=== PATIENT | female | born 1995 | race Caucasian/White ===

== ENCOUNTER 2021-09-27 14:41 | Day surgery (SDC) | payer BC ==
[2021-09-27 15:24] VITALS: BMI 31.5
[2021-09-27] MEDS ORDERED: hydrALAZINE 20 MG/ML VIAL SLOW IVP PRN (15:51)
[2021-09-27 16:20] LABS: Fetal Membranes Rupture No Membranes Rupture (No Rupture)
== END 2021-09-27 17:20 | disposition home or self-care (01) ==
LOC: CSHLD/OP 14:41
PROVIDERS: ATTEND Obstetrics & Gynecology
DX: O99.891 Other specified diseases and conditions complicating pregnancy (principal); N89.8 Other specified noninflammatory disorders of vagina; O09.292 Supervision of pregnancy with other poor reproductive or obstetric history, second trimester; Z3A.25 25 weeks gestation of pregnancy; Z79.82 Long term (current) use of aspirin; Z79.899 Other long term (current) drug therapy; Z88.0 Allergy status to penicillin
CPT/HCPCS: 76815; 84112; 87480; 87510; 87660

== ENCOUNTER 2021-09-29 15:49 | Day surgery (SDC) | payer BC ==
[2021-09-29 16:20] VITALS: BMI 31.5
[2021-09-29] MEDS ORDERED: hydrALAZINE 20 MG/ML VIAL SLOW IVP PRN (16:53)
[2021-09-29 17:35] LABS: Bilirubin Neg (Negative); Blood, Urine Negative (Negative); Clarity Clear (Clear); Glucose, Urine (Dipstick) Normal (Negative); Ketone, Urine Negative (Negative); Leukocyte Negative (Negative); Nitrite Negative (Negative); Protein, Urine (Dipstick) Negative (Neg-Trace); Specific Gravity, Urine 1.025 (1.002-1.036); Urobilinogen Normal mg/dL (Less than 2)
[2021-09-29 17:55] LABS: Bacteria/HPF 2+ HPF (None Seen); RBC/HPF 0-3 HPF (0-3)
[2021-09-29 17:56] LABS: Mucous/LPF 2+ LPF (<2+)
[2021-09-29 18:09] LABS: FFN Internal QC Analyzer PASS (PASS); FFN Internal QC Cassette PASS (PASS); Fetal Fibronectin Negative (Negative)
== END 2021-09-29 17:10 | disposition home or self-care (01) ==
LOC: CSHLD/OP 15:49
PROVIDERS: ATTEND Obstetrics & Gynecology
DX: O36.8120 Decreased fetal movements, second trimester, not applicable or unspecified (principal); O99.891 Other specified diseases and conditions complicating pregnancy; N89.8 Other specified noninflammatory disorders of vagina; R82.71 Bacteriuria; Z3A.25 25 weeks gestation of pregnancy; Z79.82 Long term (current) use of aspirin; Z79.899 Other long term (current) drug therapy; Z88.0 Allergy status to penicillin
CPT/HCPCS: 81001; 82731

== ENCOUNTER 2021-11-17 12:29 | Day surgery (SDC) | payer BC ==
[2021-11-17 13:15] VITALS: BMI 31.5
[2021-11-17] MEDS ORDERED: hydrALAZINE 20 MG/ML VIAL SLOW IVP PRN (14:22)
[2021-11-17 14:49] LABS: Bilirubin Neg (Negative); Blood, Urine Negative (Negative); Clarity Clear (Clear); Glucose, Urine (Dipstick) Normal (Negative); Ketone, Urine Negative (Negative); Leukocyte Negative (Negative); Nitrite Negative (Negative); Protein, Urine (Dipstick) Negative (Neg-Trace); pH, Urine 6.5 (5.0-9.0)
[2021-11-17 14:52] LABS: Urine Culture Reflex No No
[2021-11-17 14:59] LABS: Bacteria/HPF 3+ HPF (None Seen); RBC/HPF 0-3 HPF (0-3)
[2021-11-17 16:03] LABS: Bilirubin Neg (Negative); Blood, Urine 10 (Negative); Clarity Clear (Clear); Glucose, Urine (Dipstick) Normal (Negative); Ketone, Urine 50 mg/dL (Negative); Leukocyte Negative (Negative); Nitrite Negative (Negative); Protein, Urine (Dipstick) 30 mg/dl (Neg-Trace)
[2021-11-17 16:10] LABS: Urine Culture Reflex No No
[2021-11-17 16:13] LABS: Bacteria/HPF None Seen HPF (None Seen); RBC/HPF 0-3 HPF (0-3); Squamous Epithelial 0-3 HPF (0-3); WBC/HPF 0-3 HPF (0-3)
== END 2021-11-17 16:30 | disposition home health service (06) ==
LOC: CSHLD/OP 12:29
PROVIDERS: ATTEND Obstetrics & Gynecology
DX: O47.03 False labor before 37 completed weeks of gestation, third trimester (principal); O98.813 Other maternal infectious and parasitic diseases complicating pregnancy, third trimester; B37.3 Candidiasis of vulva and vagina; Z3A.32 32 weeks gestation of pregnancy; Z14.8 Genetic carrier of other disease; Z79.82 Long term (current) use of aspirin; Z79.899 Other long term (current) drug therapy; Z88.0 Allergy status to penicillin
CPT/HCPCS: 51701; 81001; 87480; 87510; 87660; 99284

== ENCOUNTER 2021-12-18 11:55 | Day surgery (SDC) | payer BC ==
[2021-12-18 12:26] VITALS: BMI 34.2
[2021-12-18 13:52] LABS: Bilirubin Neg (Negative); Blood, Urine Negative (Negative); Glucose, Urine (Dipstick) Normal (Negative); Ketone, Urine 50 mg/dL (Negative); Leukocyte Negative (Negative); Nitrite Negative (Negative); Protein, Urine (Dipstick) 15 mg/dl (Neg-Trace); Specific Gravity, Urine 1.025 (1.002-1.036)
[2021-12-18 14:01] LABS: Clarity Clear (Clear)
[2021-12-18] MEDS ORDERED: hydrALAZINE 20 MG/ML VIAL SLOW IVP PRN (14:01)
[2021-12-18 14:04] LABS: Bacteria/HPF 1+ HPF (None Seen); RBC/HPF 0-3 HPF (0-3); Renal Epithelial 0-3 HPF (None Seen); Squamous Epithelial 21-50 HPF (0-3); Transitional Epithelial 0-3 HPF (None Seen); WBC/HPF 0-3 HPF (0-3)
== END 2021-12-18 14:15 | disposition home or self-care (01) ==
LOC: CSHLD/OP 11:55
PROVIDERS: ATTEND Obstetrics & Gynecology
DX: O47.03 False labor before 37 completed weeks of gestation, third trimester (principal); O26.23 Pregnancy care for patient with recurrent pregnancy loss, third trimester; O99.283 Endocrine, nutritional and metabolic diseases complicating pregnancy, third trimester; E03.9 Hypothyroidism, unspecified; O21.0 Mild hyperemesis gravidarum; Z3A.36 36 weeks gestation of pregnancy; Z79.82 Long term (current) use of aspirin; Z79.890 Hormone replacement therapy; Z79.899 Other long term (current) drug therapy; Z88.0 Allergy status to penicillin
CPT/HCPCS: 81001; 87480; 87510; 87660; 99283

== ENCOUNTER 2022-07-13 11:42 | Emergency (ER) | payer BC, OTHER ==
[2022-07-13] MEDS ORDERED: Ondansetron PF 4 MG/2 ML Vial ONE (12:20)
== END 2022-07-13 14:49 | disposition home or self-care (01) ==
LOC: CSHERS 11:42
DX: O99.611 Diseases of the digestive system complicating pregnancy, first trimester (principal); K59.00 Constipation, unspecified; Z3A.09 9 weeks gestation of pregnancy
CPT/HCPCS: 74022; 96361; 96374; J2405

== ENCOUNTER 2022-07-31 16:48 | Emergency (ER) | payer OTHER | END 2022-07-31 18:10 | disposition home or self-care (01) | LOC: CSHERS 16:48 | DX: O99.891 Other specified diseases and conditions complicating pregnancy (principal); L02.216 Cutaneous abscess of umbilicus; Z3A.11 11 weeks gestation of pregnancy | CPT/HCPCS: 10160; 87070; 87205 ==

== ENCOUNTER 2022-10-09 09:58 | Emergency (ER) | payer BC, OTHER | END 2022-10-09 12:15 | disposition home or self-care (01) | LOC: CSHERS 09:58 | DX: O9A.212 Injury, poisoning and certain other consequences of external causes complicating pregnancy, second trimester (principal); S96.911A Strain of unspecified muscle and tendon at ankle and foot level, right foot, initial encounter; Z3A.20 20 weeks gestation of pregnancy; X50.1XXA Overexertion from prolonged static or awkward postures, initial encounter ==

== ENCOUNTER 2022-12-19 17:05 | Day surgery (SDC) | payer OTHER ==
[2022-12-19] MEDS ORDERED: hydrALAZINE 20 MG/ML VIAL SLOW IVP PRN (18:22)
[2022-12-19] MEDS ORDERED: Ondansetron PF 4 MG/2 ML Vial IVP SCH (18:30)
[2022-12-19] MEDS ORDERED: Acetaminophen 500 MG TAB PO SCH (18:30)
[2022-12-19] MEDS ORDERED: Lactated Ringer's 1,000 ML IV SCH (18:30)
[2022-12-19 19:57] LABS: Bilirubin Neg (Negative); Blood, Urine Negative (Negative); Clarity Cloudy (Clear); Glucose, Urine (Dipstick) 100 mg/dL (Negative); Ketone, Urine Negative (Negative); Leukocyte 25 (Negative); Nitrite Negative (Negative); Protein, Urine (Dipstick) 30 mg/dl (Neg-Trace)
[2022-12-19 20:03] LABS: Bacteria/HPF 2+ HPF (None Seen); CAUTI Indications for Culture Pregnancy; RBC/HPF 0-3 HPF (0-3); Squamous Epithelial 0-3 HPF (0-3)
[2022-12-19 20:05] LABS: Calcium Oxalate Crystals Rare HPF (None Seen)
[2022-12-19 20:06] LABS: Urine Culture Reflex Yes Yes
== END 2022-12-19 21:25 | disposition home or self-care (01) ==
LOC: CSHLD/OP 17:05
PROVIDERS: ATTEND Obstetrics & Gynecology
DX: O26.891 Other specified pregnancy related conditions, first trimester (principal); M54.50 Low back pain, unspecified; O21.2 Late vomiting of pregnancy; O99.283 Endocrine, nutritional and metabolic diseases complicating pregnancy, third trimester; E03.9 Hypothyroidism, unspecified; E86.0 Dehydration; O99.343 Other mental disorders complicating pregnancy, third trimester; F41.9 Anxiety disorder, unspecified; F42.9 Obsessive-compulsive disorder, unspecified; F32.A Depression, unspecified; O99.613 Diseases of the digestive system complicating pregnancy, third trimester; K21.9 Gastro-esophageal reflux disease without esophagitis; O99.353 Diseases of the nervous system complicating pregnancy, third trimester; O23.43 Unspecified infection of urinary tract in pregnancy, third trimester; R82.71 Bacteriuria; G43.909 Migraine, unspecified, not intractable, without status migrainosus; Z79.82 Long term (current) use of aspirin; Z79.899 Other long term (current) drug therapy; Z88.2 Allergy status to sulfonamides; Z3A.31 31 weeks gestation of pregnancy
CPT/HCPCS: 81001; 87086; 96360; 96361; 99283; J2405

== ENCOUNTER 2023-01-10 14:57 | Day surgery (SDC) | payer OTHER ==
[2023-01-10 15:44] VITALS: BMI 34.4
[2023-01-10] MEDS ORDERED: hydrALAZINE 20 MG/ML VIAL SLOW IVP PRN (17:01)
[2023-01-10] MEDS ORDERED: Ondansetron ODT 4 MG TAB PO PRN (17:11)
[2023-01-10] MEDS ORDERED: Acetaminophen 500 MG TAB PO SCH (17:15)
== END 2023-01-10 18:26 | disposition home or self-care (01) ==
LOC: CSHLD/OP 14:57
PROVIDERS: ATTEND Obstetrics & Gynecology
DX: O10.913 Unspecified pre-existing hypertension complicating pregnancy, third trimester (principal); O99.353 Diseases of the nervous system complicating pregnancy, third trimester; G43.909 Migraine, unspecified, not intractable, without status migrainosus; O99.343 Other mental disorders complicating pregnancy, third trimester; F41.9 Anxiety disorder, unspecified; F32.A Depression, unspecified; O99.613 Diseases of the digestive system complicating pregnancy, third trimester; K21.9 Gastro-esophageal reflux disease without esophagitis; O99.283 Endocrine, nutritional and metabolic diseases complicating pregnancy, third trimester; E03.9 Hypothyroidism, unspecified; O23.593 Infection of other part of genital tract in pregnancy, third trimester; B37.31 Acute candidiasis of vulva and vagina; Z79.82 Long term (current) use of aspirin; Z79.899 Other long term (current) drug therapy; Z88.0 Allergy status to penicillin; Z3A.34 34 weeks gestation of pregnancy
CPT/HCPCS: 99283; Q0162

== ENCOUNTER 2023-01-23 17:55 | Day surgery (SDC) | payer OTHER ==
[2023-01-23] MEDS ORDERED: hydrALAZINE 20 MG/ML VIAL SLOW IVP PRN (19:53)
[2023-01-23] MEDS ORDERED: Metoclopramide HCl 10 MG/2 ML VIAL IVP SCH (20:00)
[2023-01-23] MEDS ORDERED: diphenhydrAMINE 50 MG/ML VIAL IVP SCH (20:00)
[2023-01-23] MEDS ORDERED: Lactated Ringer's 1,000 ML IV SCH (20:00)
[2023-01-23 20:26] LABS: #Eosinphils 0.1 10x3/uL (0.0-0.5); #Monocytes 1.1 10x3/uL (0.0-1.1); #Neutrophils 9.9 10x3/uL (1.5-8.4); %Basophils 0.3 % (0.0-2.0); %Eosinophils 0.7 % (0.0-6.0); %Lymphocytes 16.8 % (18.0-47.0); %Monocytes 8.3 % (0.0-10.0); %Neutrophils 73.3 % (40.0-75.0); Mean Corpuscular HGB CONC 33.2 g/dL (32.0-36.0); Mean Corpuscular Hemoglobin 27.8 pg (27.0-33.0); Mean Corpuscular Volume 83.8 fl (81.6-98.3); Platelet Count 264 10x3/uL (150-450); RBC Distribution Width 12.7 % (11.5-14.5); Red Blood Cell (RBC) Count 4.31 10x6/uL (3.90-5.03); White Blood Cell (WBC) Count 13.5 10x3/uL (3.5-10.5)
[2023-01-23 20:43] LABS: ALT (SGPT) Less than 6 U/L (8-55); AST (SGOT) 11 U/L (5-34); Albumin 3.3 g/dL (3.5-5.0); Alkaline Phosphatase 165 U/L (40-110); Anion Gap 13 mmol/L (10-20); BUN (Urea Nitrogen) 9 mg/dL (7.0-18.7); Bilirubin, Total 0.3 mg/dL (0.2-1.2); Calc. Creatinine Clearance 0 mL/min (70-130); Calcium 8.8 mg/dL (7.8-10.44); Carbon Dioxide 21 mmol/L (22-29); Chloride 106 mmol/L (98-107); Estimated GFR 127; Globulin 2.3 g/dL (2.4-3.5); Glucose 81 mg/dL (70-105); Potassium 4.2 mmol/L (3.5-5.1); Protein, Total 5.6 g/dL (6.0-8.3); Sodium 136 mmol/L (136-145)
[2023-01-23 21:37] LABS: Bilirubin Neg (Negative); Blood, Urine Negative (Negative); Clarity Cloudy (Clear); Glucose, Urine (Dipstick) 100 mg/dL (Negative); Ketone, Urine Negative (Negative); Leukocyte 25 (Negative); Nitrite Negative (Negative); Protein, Urine (Dipstick) 30 mg/dl (Neg-Trace)
[2023-01-23 21:50] LABS: Creatinine, Urine 235.33 mg/dL (47-110)
[2023-01-23 22:04] LABS: Bacteria/HPF 2+ HPF (None Seen); Calcium Oxalate Crystals Rare HPF (None Seen); RBC/HPF 0-3 HPF (0-3); SARS-CoV-2 NAA Rapid Test Not Detected (NotDetected); Squamous Epithelial 0-3 HPF (0-3); WBC/HPF 0-3 HPF (0-3)
== END 2023-01-23 22:40 | disposition home or self-care (01) ==
LOC: CSHLD/OP 17:55
PROVIDERS: ATTEND Obstetrics & Gynecology
DX: O26.893 Other specified pregnancy related conditions, third trimester (principal); R10.10 Upper abdominal pain, unspecified; O13.3 Gestational [pregnancy-induced] hypertension without significant proteinuria, third trimester; O21.2 Late vomiting of pregnancy; O36.63X0 Maternal care for excessive fetal growth, third trimester, not applicable or unspecified; O99.353 Diseases of the nervous system complicating pregnancy, third trimester; G43.909 Migraine, unspecified, not intractable, without status migrainosus; O99.343 Other mental disorders complicating pregnancy, third trimester; F32.A Depression, unspecified; F41.9 Anxiety disorder, unspecified; O99.613 Diseases of the digestive system complicating pregnancy, third trimester; K21.9 Gastro-esophageal reflux disease without esophagitis; O99.283 Endocrine, nutritional and metabolic diseases complicating pregnancy, third trimester; E86.0 Dehydration; E03.9 Hypothyroidism, unspecified; O99.891 Other specified diseases and conditions complicating pregnancy; H53.9 Unspecified visual disturbance; Z20.822 Contact with and (suspected) exposure to COVID-19; Z79.82 Long term (current) use of aspirin; Z79.899 Other long term (current) drug therapy; Z79.890 Hormone replacement therapy; Z88.0 Allergy status to penicillin; Z3A.35 35 weeks gestation of pregnancy
CPT/HCPCS: 36415; 76819; 80053; 81001; 82570; 84156; 85025; 99283; J1200; J2765; U0002